=== PATIENT | female | born 1960 | race Caucasian/White ===

== ENCOUNTER 2017-02-08 16:51 | Emergency (ER) | payer OTHER ==
--- NOTE | ~2017-02-08 | CT4 ---
[facility] A Service of [facility] [place] RADIOLOGY TEXT RESULTS PATIENT: SORAYA COKER LOCATION: SED : 62 UNIT #: [id number] AGE: [address]: Alcon Yuan MD SEX: F ORDER DR: [id number] [address] [address] [id number] E MR#: [id number] Acc #: [id number] NAME: SORAYA COKER : 1960 SEX: F STUDY DATE/TIME: 02/08/2017 17:34 UNIT: SED ROOM: STUDY DESCRIPTION: CT Abd and Pelv Wo Cont Attending Physician: Alcon Yuan M.D. Ordering Physician: Alcon Yuan M.D. Primary Care Physician: Silas Brannon M.D. MEDICAL IMAGING REPORT This report is preliminary unless electronic signature is present. EXAM CT abdomen and pelvis without contrast HISTORY Bilateral flank pain for 1 day. Renal stones. FINDINGS CT abdomen and pelvis was performed without contrast. This CT exam was performed with one or more of the following radiation dose reduction techniques: automatic control, adjustment of mA and/or kV according to patient size, and iterative reconstruction. CT ABDOMEN: Incidental focal fatty infiltration in the medial segment left hepatic lobe adjacent to the falciform ligament. Approximately 1 cm probable cyst at the anterior junction of the right and left hepatic lobes. Cholecystectomy. The spleen, pancreas, and adrenal glands are normal. 2.2 cm cyst in the anterior mid-left kidney. No renal calculi. No hydronephrosis. Normal caliber abdominal aorta. No bowel dilatation. Normal appendix. CT PELVIS: Moderate sigmoid diverticulosis. No diverticulitis. Hysterectomy. IMPRESSION 1. No acute findings in the abdomen or pelvis. 2. No urinary calculi or obstruction. 3. Normal appendix. 4. Incidental 2.2 cm left renal cyst and single small hepatic cyst. 5. Moderate sigmoid diverticulosis but no diverticulitis. 6. Hysterectomy and cholecystectomy. [facility] A Service of [facility] [place] RADIOLOGY TEXT RESULTS PATIENT: SORAYA COKER LOCATION: SED : 62 UNIT #: [id number] AGE: [address]: Alcon Yuan MD SEX: F ORDER DR: Dictated by... Dewayne Frey M.D. THIS IS AN ELECTRONICALLY VERIFIED REPORT Dewayne Frey M.D. at 02/08/2017 10:53 PM DFL/niels TD: 02/08/2017 22:05 JOB #: [id number] MEDICAL IMAGING REPORT Page 1 of 1
[~2017-02-08 16:51] MED LIST: ATORVASTATIN CA20 MG PO; BENTYL20 M1 PO; BENTYL20 MG; BUSPAR15 M1 PO; BUSPIRONE HCL15 MG PO; CARAFATE1 G; CIPRO PO; DICYCLOMINE HCL20 MG PO; GINGER ROOT550 M1 PO; IBGARD90 MG PO; MIRTAZAPINE30 MG PO; OMEPRAZOLE20 M1 PO; OMEPRAZOLE40 M1 PO; OXCARBAZEPINE150 MG PO; PEPPERMINT PO; PHENERGAN25 M1 PO; PHENERGAN25 MG PO; PRILOSEC20 M1 PO; PROMETHAZINE HC25 MG PO; PROZAC40 M1 PO; PROZAC40 MG PO; TYLENOL #3 PO; VITAMIN D250000 UNIT PO; ZANTAC300 MG; ZOFRAN ODT4 MG; ZYRTEC PO; ZYRTEC10 M2 PO
[2017-02-08] MEDS ORDERED: REMERON PO (16:54)
[2017-02-08] MEDS ORDERED: TRILEPTAL PO (16:54)
[2017-02-08] MEDS ORDERED: BUSPAR15 M1 PO (16:54)
[2017-02-08] MEDS ORDERED: PRILOSEC PO (16:55)
[2017-02-08] MEDS ORDERED: ALL DAY ALLERGY10 M3 PO (16:55)
[2017-02-08] MEDS ORDERED: SARAFEM20 MG PO (16:55)
[2017-02-08] MEDS ORDERED: VITAMIN D 22000 UNIT (16:55)
[2017-02-08] MEDS ORDERED: RANITIDINE HCL300 M1 PO (16:56)
[2017-02-08 17:38] LABS: URINE SOURCE CLEAN CATCH
[2017-02-08 17:40] LABS: URINE APPEARANCE CLEAR; URINE BILIRUBIN NEG (NEG); URINE BLOOD 2+ (NEG); URINE COLOR YELLOW; URINE GLUCOSE NEG (NORM); URINE KETONE NEG (NEG); URINE LEUKOCYTE ESTERASE NEG (NEG); URINE NITRATE NEG (NEG); URINE PROTEIN NEG (NEG); URINE SPECIFIC GRAVITY >=1.030 (1.003-1.035); URINE UROBILINOGEN 0.2 MG/DL (NORM)
[2017-02-08 17:45] LABS: MICRO INDICATED? YES
[2017-02-08 17:46] LABS: CULTURE INDICATED? YES; URINE BACTERIA 1+ (NEG); URINE SQUAMOUS EPITHELIAL CELL MODERATE /[HPF]
[2017-02-08 17:52] LABS: BASOPHIL# 0.1 X10e3 (0-0.3); BASOPHIL% 0.6 % (0-2.5); EOSINOPHIL# 0.1 X10e3 (0-0.7); EOSINOPHIL% 1.3 % (0.0-7.0); HEMATOCRIT 43.1 % (35.0-45.0); HEMOGLOBIN 14.5 gm/dL (12.0-16.0); LYMPHOCYTE# 2.7 X10e3 (1.0-3.5); LYMPHOCYTE% 26.1 % (17.0-45.0); MEAN CELL VOLUME 90.3 FL (83-96); MEAN CORPUSCULAR HEMOGLOBIN 30.3 PG (28-34); MEAN CORPUSCULAR HGB CONC 33.6 g/dL (30-36); MONOCYTE# 0.8 X10e3 (0-1.0); MONOCYTE% 7.4 % (3.0-12.0); NEUTROPHIL# 6.7 X10e3 (1.5-7.1); NEUTROPHIL% 64.6 % (40-75); PLATELET COUNT 294 X10e3 (140-420); RED BLOOD COUNT 4.78 X10e (3.90-5.30); RED CELL DISTRIBUTION WIDTH 14.4 % (11.0-15.5); WHITE BLOOD COUNT 10.4 X10e3 (4.0-10.5)
[2017-02-08 17:53] LABS: DIFF IND NO
[2017-02-08 18:24] LABS: ALBUMIN SERUM 3.9 g/dL (3.5-5.0); ALKALINE PHOSPHATASE 83 U/L (32-92); ALT (SGPT) 18 U/L (10-40); AST (SGOT) 16 U/L (10-42); BILIRUBIN,TOTAL 0.5 mg/dL (0.2-2.0); BLOOD UREA NITROGEN 18 mg/dL (9-23); CALCIUM SERUM 8.5 mg/dL (8.4-10.2); CARBON DIOXIDE 20 mmol/L (22-31); CHLORIDE 111 mmol/L (100-111); CREATININE SERUM 0.9 mg/dL (0.6-1.4); GLUCOSE FASTING 111 mg/dL (70-110); LIPASE 28 U/L (22-51); POTASSIUM 3.9 mmol/L (3.5-5.1); PROTEIN TOTAL SERUM 6.2 g/dL (6.0-8.3); SODIUM 136 mmol/L (135-145)
[2017-02-08 18:25] LABS: BILIRUBIN, DIRECT <0.1 mg/dL (0.0-0.2); BILIRUBIN,INDIRECT 0.4 mg/dL (0.0-0.9)
[2017-05-16] MEDS ORDERED: DICLOFENAC PO (14:41)
[2017-05-16] MEDS ORDERED: PHENERGAN PO (14:41)
[2017-05-16] MEDS ORDERED: AMITRIPTYLINE PO (14:41)
== END 2017-02-08 19:03 | disposition home or self-care (01) ==
LOC: SED 16:51
PROVIDERS: Emergency Medicine
DX: M54.5 Low back pain (principal); R31.9 Hematuria, unspecified; K21.9 Gastro-esophageal reflux disease without esophagitis; F31.9 Bipolar disorder, unspecified; F17.200 Nicotine dependence, unspecified, uncomplicated
CPT/HCPCS: 36415; 74176; 80048; 80076; 81003; 83690; 85025; 87086; 96374; 96375; 99284; J1885; J2405

== ENCOUNTER 2017-03-26 11:17 | Emergency (ER) | payer OTHER ==
[~2017-03-26 11:17] MED LIST changes: +ALL DAY ALLERGY10 M3 PO; +PRILOSEC PO; +RANITIDINE HCL300 M1 PO; +REMERON PO; +SARAFEM20 MG PO; +TRILEPTAL PO; +VITAMIN D 22000 UNIT
[2017-05-16] MEDS ORDERED: PHENERGAN PO (14:41)
[2017-05-16] MEDS ORDERED: AMITRIPTYLINE PO (14:41)
[2017-05-16] MEDS ORDERED: DICLOFENAC PO (14:41)
== END 2017-03-26 12:12 | disposition home or self-care (01) ==
LOC: SED 11:17
DX: M54.5 Low back pain (principal); K58.9 Irritable bowel syndrome, unspecified; F17.200 Nicotine dependence, unspecified, uncomplicated; Z87.442 Personal history of urinary calculi; Z90.49 Acquired absence of other specified parts of digestive tract; Z90.710 Acquired absence of both cervix and uterus; Z79.899 Other long term (current) drug therapy
CPT/HCPCS: 96372; 99283; J1885

== ENCOUNTER 2017-03-28 20:02 | Emergency (ER) | payer OTHER ==
[~2017-03-28] VITALS: Ht 165.1 cm; Wt 86.2 kg
--- NOTE | ~2017-03-28 | CR2 ---
[facility] A Service of [facility] RADIOLOGY TEXT RESULTS PATIENT: SORAYA COKER LOCATION: SED : 62 UNIT #: [id number] AGE: [address]: Terry España DO SEX: F ORDER DR: [id number] [address] [address] [id number] E MR#: [id number] Acc #: [id number] NAME: SORAYA COKER : 1960 SEX: F STUDY DATE/TIME: 03/28/2017 21:46 UNIT: SED ROOM: STUDY DESCRIPTION: CR Abdomen Acute Series Attending Physician: Terry España Ordering Physician: Terry España Primary Care Physician: Silas Brannon M.D. MEDICAL IMAGING REPORT This report is preliminary unless electronic signature is present. EXAM Acute abdomen series HISTORY Right-side abdomen pain and vomiting for 3 days. FINDINGS Flat and upright views of the abdomen and upright view of the chest demonstrate the bowel gas pattern is normal. No bowel dilatation or displacement. No free air. Surgical clips in the right upper quadrant and in the central pelvis. Upright view of the chest demonstrates the cardiac size and pulmonary vascularity are normal. No infiltrates or effusions. Mild linear atelectasis or scarring in the lateral left base. IMPRESSION No acute findings. No active disease. Lungs are clear. Dictated by... Dewayne Frey M.D. THIS IS AN ELECTRONICALLY VERIFIED REPORT Dewayne Frey M.D. at 03/29/2017 8:41 PM DFL/niels TD: 03/29/2017 02:14 JOB #: [id number] MEDICAL IMAGING REPORT Page 1 of 1
--- NOTE | ~2017-03-28 | EKG ---
PATIENT: SORAYA COKER UNIT #: [id number] Ventricular Rate: 67 BPM Atrial Rate: 67 BPM P-R Interval: 152 ms QRS Duration: 92 ms Q-T Interval: 430 ms QTC Calculation(Bezet): 454 ms P [place]: 47 degrees Calculated R [place]: -48 degrees Calculated T [place]: 40 degrees Diagnosis Line: Normal sinus rhythm Diagnosis Line: Left anterior fascicular block Diagnosis Line: Abnormal ECG Diagnosis Line: No previous ECGs available Diagnosis Line: Confirmed by LILLIAN ZAMORA MD ([id number]) on Diagnosis Line: 03/31/2017 4:04:22 PM INTERPRETING MD: SERA MAC
[2017-03-28] MEDS ORDERED: DICLOFENAC (20:09)
[2017-03-28 21:03] LABS: BASOPHIL# 0.1 X10e3 (0-0.3); BASOPHIL% 0.6 % (0-2.5); EOSINOPHIL# 0.1 X10e3 (0-0.7); EOSINOPHIL% 0.7 % (0.0-7.0); HEMATOCRIT 46.1 % (35.0-45.0); HEMOGLOBIN 15.6 gm/dL (12.0-16.0); LYMPHOCYTE# 3.4 X10e3 (1.0-3.5); LYMPHOCYTE% 26.3 % (17.0-45.0); MEAN CELL VOLUME 89.9 FL (83-96); MEAN CORPUSCULAR HEMOGLOBIN 30.4 PG (28-34); MEAN CORPUSCULAR HGB CONC 33.8 g/dL (30-36); MEAN PLATELET VOLUME 7.8 FL (6.5-11.5); MONOCYTE# 0.9 X10e3 (0-1.0); MONOCYTE% 6.9 % (3.0-12.0); NEUTROPHIL# 8.5 X10e3 (1.5-7.1); NEUTROPHIL% 65.5 % (40-75); PLATELET COUNT 367 X10e3 (140-420); RED BLOOD COUNT 5.12 X10e (3.90-5.30); RED CELL DISTRIBUTION WIDTH 14.2 % (11.0-15.5); WHITE BLOOD COUNT 12.9 X10e3 (4.0-10.5)
[2017-03-28 21:04] LABS: DIFF IND NO
[2017-03-28 21:14] LABS: ALKALINE PHOSPHATASE 79 U/L (32-92); ALT (SGPT) 22 U/L (10-40); AST (SGOT) 21 U/L (10-42); BILIRUBIN,TOTAL 0.5 mg/dL (0.2-2.0); BLOOD UREA NITROGEN 20 mg/dL (9-23); CARBON DIOXIDE 24 mmol/L (22-31); CHLORIDE 107 mmol/L (100-111); CREATININE SERUM 0.8 mg/dL (0.6-1.4); GLOM FILT RATE Estimated 83.1 mL/min (>60); GLUCOSE FASTING 98 mg/dL (70-110); LIPASE 27 U/L (22-51); POTASSIUM 3.5 mmol/L (3.5-5.1); PROTEIN TOTAL SERUM 7.3 g/dL (6.0-8.3); SODIUM 138 mmol/L (135-145)
[2017-03-28 21:18] LABS: BILIRUBIN, DIRECT <0.1 mg/dL (0.0-0.2); BILIRUBIN,INDIRECT 0.4 mg/dL (0.0-0.9)
[2017-03-28 23:09] LABS: URINE SOURCE CLEAN CATCH
[2017-03-28 23:12] LABS: URINE BILIRUBIN NEG (NEG); URINE BLOOD 1+ (NEG); URINE COLOR YELLOW; URINE GLUCOSE NEG (NORM); URINE KETONE TRACE (NEG); URINE LEUKOCYTE ESTERASE NEG (NEG); URINE NITRATE NEG (NEG); URINE PH 7.5 (5-8); URINE PROTEIN NEG (NEG); URINE UROBILINOGEN 0.2 MG/DL (NORM)
[2017-03-28 23:17] LABS: MICRO INDICATED? YES; URINE APPEARANCE SL HAZY
[2017-03-28 23:18] LABS: CULTURE INDICATED? NO; URINE AMORPHOUS SEDIMENT AMORP PHOSPHATES; URINE BACTERIA NEG (NEG); URINE MUCUS PRESENT; URINE SQUAMOUS EPITHELIAL CELL OCCAS /[HPF]
[2017-05-16] MEDS ORDERED: PHENERGAN PO (14:41)
[2017-05-16] MEDS ORDERED: AMITRIPTYLINE PO (14:41)
[2017-05-16] MEDS ORDERED: DICLOFENAC PO (14:41)
== END 2017-03-28 23:47 | disposition home or self-care (01) ==
LOC: SED 20:02
PROVIDERS: Emergency Medicine
DX: R11.2 Nausea with vomiting, unspecified (principal); R19.7 Diarrhea, unspecified; F31.9 Bipolar disorder, unspecified; K58.9 Irritable bowel syndrome, unspecified; F17.210 Nicotine dependence, cigarettes, uncomplicated; Z90.710 Acquired absence of both cervix and uterus; Z90.49 Acquired absence of other specified parts of digestive tract; Z98.890 Other specified postprocedural states; Z79.899 Other long term (current) drug therapy
CPT/HCPCS: 36415; 74022; 80048; 80076; 81003; 83690; 85025; 93005; 96361; 96372; 96374; 96375; 99284; C9113; J0500; J2405